=== PATIENT | male | born 2005 | race Two or more races ===

== ENCOUNTER 2025-03-13 23:45 | Emergency (ER) | payer OTHER ==
[~2025-03-13] VITALS: Ht 177.8 cm; Wt 65.9 kg
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
[2025-03-14] MEDS: fentaNYL CITRATE 100 MCG/2 ML VL IV ONE (02:15)
[2025-03-14] MEDS: HYDROcodone-ACET 5/325MG TAB PO ONE (02:27)
[2025-03-14] MEDS: MORPHINE SULFATE 4 MG/ML SYR/VIAL IV ONE ×3 (02:43→08:18)
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
[2025-03-14 07:12] VITALS: PULSE 112; RESP 22; O2SAT 96
[2025-03-14] MEDS: ONDANSETRON HCL 4 MG/2 ML VIAL IV ONE (08:17)
[2025-03-14 08:18] VITALS: TEMP 99; O2SAT 97
[2025-03-14] MEDS ORDERED: ONDANSETRON HCL 4 MG/2 ML VIAL ONE (08:19)
[2025-03-14] MEDS ORDERED: MORPHINE SULFATE 4 MG/ML SYR/VIAL ONE (08:20)
[2025-03-14 08:35] VITALS: BP 118/82; PULSE 102; RESP 19
== END 2025-03-14 08:38 | disposition short-term general hospital (02) ==
LOC: EDBD 23:45 → ER 23:45
DX: S32.001A Stable burst fracture of unspecified lumbar vertebra, initial encounter for closed fracture (principal); S32.10XA Unspecified fracture of sacrum, initial encounter for closed fracture; R42 Dizziness and giddiness; M53.2X6 Spinal instabilities, lumbar region; V89.2XXA Person injured in unspecified motor-vehicle accident, traffic, initial encounter; Y93.89 Activity, other specified; Y92.410 Unspecified street and highway as the place of occurrence of the external cause; Y99.8 Other external cause status
CPT/HCPCS: 72125; 72131; 96374; 96375; 96376; 99285; J2270; J2405; 99291